=== PATIENT | female | born 1935 ===

== ENCOUNTER 2020-09-17 07:08 | Outpatient (CLI) | payer OTHER ==
[~2020-09-17 07:08] MED LIST: CHON PO; Cipro PO; GLUCOSAMIN PO; METROPOLOL PO; NORVASC5 MG PO; SYNTHROID50 MCG PO; TRAM1TAB98 PO; VALIUM PO; XALATAN; [UNRECOGNIZED DRUG - OTHER] PO
== END 2020-09-17 07:18 | disposition home or self-care (01) ==
LOC: NUCLEAR 07:08
PROVIDERS: ATTEND Internal Medicine Cardiovascular Disease
DX: I25.6 Silent myocardial ischemia (principal); R07.2 Precordial pain
CPT/HCPCS: 78452; 93017; A9500; J0153